=== PATIENT | male | born 1980 | race African-American/Black ===

== ENCOUNTER 2017-02-11 20:06 | Emergency (ER) | payer OTHER ==
[~2017-02-11] VITALS: Ht 175.3 cm; Wt 89.5 kg
[~2017-02-11 20:06] MED LIST: ATARAX,VISTARIL50 MG PO; ZANTAC150 MG PO; ZYRTEC10 M2 PO
[2017-02-11 21:10] LABS: MCH 27.2 PG (29.0-34.0); MCHC 32.7 G/DL (30.0-36.0); MEAN PLAT.VOLUME 10.3 uM^3 (9.0-12.4); PLATELET COUNT 282 K/uL (156-360); RBC DIS.WIDTH-CV 12.7 % (11.8-14.6); RBC DIS.WIDTH-SD 38.2 % (39-53); WHITE BLOOD COUNT 5.1 K/uL (4.1-10.2)
[2017-02-11 21:13] LABS: ADD MIUA? NO; BILIRUBIN NEGATIVE; BLOOD NEGATIVE; COLOR YELLOW ((YELLOW)); GLUCOSE (STRIP) NEGATIVE; KETONES NEGATIVE; LEUKOCYTES NEGATIVE; NITRITE NEGATIVE; PROTEIN (STRIP) NEGATIVE; SPECIFIC GRAVITY 1.017 (1.000-1.030); UCUL ADDED? NO
[2017-02-11 21:18] LABS: CHLORIDE 105 mEq/L (99-109); POTASSIUM 3.8 mEq/L (3.7-5.4); SODIUM 141 mEq/L (136-147)
[2017-02-11 21:20] LABS: GLUCOSE 97 mg/dL (70-99)
[2017-02-11 21:21] LABS: ANION GAP 7 MEQ/L (2-14)
[2017-02-11 21:22] LABS: TOTAL BILIRUBIN 0.7 mg/dL (0.0-1.0)
[2017-02-11 21:24] LABS: ALKALINE PHOSPHATASE 52 IU/L (3-129); GFR ESTIMATE (CALCULATED) > 59 mL/min/
[2017-02-11 21:25] LABS: UREA NITROGEN (BUN) 12 mg/dL (9-23)
[2017-02-11] MEDS ORDERED: NAPROXEN500 MG PO (21:45)
[2017-02-11 21:58] VITALS: BP 140/89
== END 2017-02-11 21:59 | disposition home or self-care (01) ==
LOC: EME 20:06 → RME 20:06
PROVIDERS: Nurse Practitioner Family
DX: R10.9 Unspecified abdominal pain (principal); R60.0 Localized edema; M54.5 Low back pain; F17.200 Nicotine dependence, unspecified, uncomplicated
CPT/HCPCS: 74176; 80053; 81003; 85027; 99281; 99283

== ENCOUNTER 2018-02-15 16:27 | Emergency (ER) | payer OTHER ==
[~2018-02-15] VITALS: Ht 175.3 cm; Wt 86.2 kg
[~2018-02-15 16:27] MED LIST changes: +FLEXERIL10 MG PO; +NAPROSYN500 MG PO; +NAPROXEN500 MG PO
[2018-02-15] MEDS ORDERED: NAPROSYN500 MG PO (19:12)
[2018-02-15 19:39] VITALS: BP 147/88
== END 2018-02-15 19:40 | disposition home or self-care (01) ==
LOC: EME 16:27
DX: S82.002A Unspecified fracture of left patella, initial encounter for closed fracture (principal); W10.9XXA Fall (on) (from) unspecified stairs and steps, initial encounter; F17.200 Nicotine dependence, unspecified, uncomplicated
CPT/HCPCS: 73564; 99281; 99284